=== PATIENT | female | born 2000 | race Hispanic/Latino ===

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

== ENCOUNTER 2024-09-07 16:11 | Emergency (ER) | payer SELFPAY ==
[~2024-09-07] VITALS: Ht 160 cm; Wt 59.0 kg
--- NOTE | 2024-09-07 16:30 | ERN ---
ED Note History of Present Illness Stated Complaint: ABNORMAL LABS Chief Complaint: Abnormal Labs Time Seen by MD: 16:14 Dictation: PATIENT IS A 24-YEAR-OLD FEMALE COMING IN FROM A LOCAL CLINIC WITH COMPLAINTS OF BEING ANEMIC AND TOLD BY HER DOCTOR TODAY TO COME INTO THE HOSPITAL FOR A BLOOD TRANSFUSION. SHE STATES SHE DOES NOT HAVE ANY HISTORY OF HEMATOCHEZIA/MELENA STOOLS/HEMATURIA OR HEAVY VAGINAL BLEEDING DISCHARGE. STATES SHE JUST STARTED SEEING HIS DOCTOR, WAS TOLD BY HER DOCTOR PRIOR TO COMING IN THAT HER IRON IS LOW. STATES SHE HAS NEVER HAD A BLOOD TRANSFUSION IN THE PAST. PATIENT NOTED TO BE VERY PALE ON INITIAL EXAM Allergies: Coded Allergies: Penicillins (Unverified Allergy, Unknown, RASH, 01/10/20) Home Meds Reported Medications Vits W-Ca,Fe,FA(<1Mg) ( Vitamins) 1 Each Tablet, 1 EACH PO DAILY, TAB 01/10/20 Past Medical History Past Medical History: No Pertinent History Surgical History: None History: Not Applicable LMP: Aug 04, 2024 RN Note Reviewed/Agreed w/PFSH: Yes Review of System Dictation CONSTITUTIONAL: NEGATIVE EXCEPT FOR HPI HEAD/FACE: NEGATIVE EXCEPT FOR HPI EENT: NEGATIVE EXCEPT FOR HPI RESPIRATORY: NEGATIVE EXCEPT FOR HPI GASTROINTESTINAL/ABDOMINAL: NEGATIVE EXCEPT FOR HPI GENITOURINARY: NEGATIVE EXCEPT FOR HPI MUSCULOSKELETAL: NEGATIVE EXCEPT FOR HPI INTEGUMENTARY: NEGATIVE EXCEPT FOR HPI NEUROLOGICAL/PSYCH: NEGATIVE EXCEPT FOR HPI HEMATOLOGIC/LYMPHATIC: NEGATIVE EXCEPT FOR HPI ALL SYSTEMS NEGATIVE, EXCEPT NOTED ABOVE. 13 POINT REVIEW OF SYSTEMS ASSESSED AND ALL NEGATIVE EXCEPT FOR ABOVE. Initial Vital Sign VS Vital Signs Date Time Temp Pulse Resp B/P (MAP) Pulse Ox O2 Delivery O2 Flow Rate FiO2 09/07/24 16:12 97.5 81 20 97/66 99 Room Air Physical Exam Dictation VITAL SIGNS REVIEWED GENERAL APPEARANCE: ALERT, ORIENTED X 3, NO ACUTE DISTRESS, WELL DEVELOPED, NOURISHED. HEAD AND FACE: NON-TRAUMATIC. EYES: PERRL, PALE CONJUNCTIVAS, EYELID NO TRAUMA, ANTERIOR CHAMBER WITH ARCUS SENILIS. EARS: PINNAS INTACT AND NO SIGNS OF TRAUMA OR ERYTHEMA EAR CANALS CLEAR AND NO DISCHARGE TM NO ERYTHEMA NOSE: NO DISCHARGE, NO BLEEDING. OROPHARYNX: BUCCAL MEMBRANES PALE PHARYNX CLEAR,NO ERYTHEMA, TONSILS NO EXUDATES, NO ABSCESSES NOTED, MUCOUS MEMBRANE MOIST NECK: SUPPLE, NON-TENDER, NO THYROMEGALY, NO MASSES, NO JVD, NO BRUITS BREAST:DEFERRED CHEST:NO TENDERNESS, NO CREPITUS, NO PARADOXICAL MOVEMENT, NO RETRACTIONS LUNGS:CLEAR, WELL-VENTILATED, SYMMETRIC, NO RALES, NO WHEEZING, NO RHONCHI, NO STRIDOR, GOOD BREATH SOUNDS BILATERALLY HEART: REGULAR RATE, REGULAR RHYTHM, NO MURMUR, NO GALLOPS VASCULAR: NO PERIPHERAL EDEMA, ABDOMEN: SOFT, POSITIVE BOWEL SOUNDS, NONDISTENDED, NO GUARDING, NONTENDER, NO REBOUND, NO MASSES NO HEPATOMEGALY, NO SPLENOMEGALY, NO DEMARCO'S SIGN, NO HERNIAS. RECTAL: DEFERRED GENITAL: DEFERRED NEUROLOGICAL: NORMAL SPEECH, MOTOR FUNCTION INTACT, SENSORY FUNCTION INTACT MUSCULOSKELETAL: NECK NONTENDER, FULL RANGE OF MOTION, BACK NONTENDER, FULL RANGE OF MOTION, EXTREMITIES: NONTENDER, FULL RANGE OF MOTION SKIN: COLOR PINK, DRY, NO TURGOR, NO RASH, NO LACERATIONS, NO ABRASIONS, NO CONTUSIONS. LYMPHATIC: DEFERRED Results (Laboratory/Radiology) Laboratory/Radiology Laboratory Tests Test 09/07/24 16:40 White Blood Count 5.9 K/uL (4.8-10.8) Red Blood Count 3.09 MIL/uL (4.00-5.50) L Hemoglobin 7.4 g/dL (12.0-16.0) L Hematocrit 25.2 % (36-48) L Mean Corpuscular Volume 81.6 fL (79-99) Mean Corpuscular Hemoglobin 23.9 pg (27.0-33.0) L Mean Corpuscular Hemoglobin Concent 29.4 g/dL (32.0-36.0) L Red Cell Distribution Width 18.6 % (11.0-15.5) H Platelet Count 190 K/uL (130-400) Mean Platelet Volume 11.0 fL (7.5-10.5) H Immature Granulocyte % (Auto) 0.5 % (0-1) Neutrophils (%) (Auto) 49.6 % (40.0-77.0) Lymphocytes (%) (Auto) 35.8 % (21.0-51.0) Monocytes (%) (Auto) 4.6 % (3.0-13.0) Eosinophils (%) (Auto) 8.5 % (0.0-8.0) H Basophils (%) (Auto) 1.0 % (0.0-5.0) Neutrophils # (Auto) 2.9 K/uL (1.8-7.7) Lymphocytes # (Auto) 2.1 K/uL (1.0-4.8) Monocytes # (Auto) 0.3 K/uL (0.1-1.0) Eosinophils # (Auto) 0.50 K/uL (0.00-0.70) Basophils # (Auto) 0.06 K/uL (0.00-0.20) Absolute Immature Granulocyte (auto 0.03 K/uL (0-1) Nucleated Red Blood Cells 0.0 % (0.0-0.19) Prothrombin Time 10.9 SEC (9.6-11.6) Prothromb Time International Ratio 1.03 (0.85-1.15) Activated Partial Thromboplast Time 27.8 SEC (26.3-35.5) Sodium Level 137 mmol/L (136-145) Potassium Level 3.9 mmol/L (3.5-5.1) Chloride Level 100 mmol/L (101-111) L Carbon Dioxide Level 29 mmol/L (21-32) Blood Urea Nitrogen 10 mg/dL (7-18) Creatinine 0.8 mg/dL (0.5-1.0) Glomerular Filtration Rate Calc 107 mL/min (>90) Random Glucose 78 mg/dL (70-105) Total Calcium 9.0 mg/dL (8.5-10.1) Labs Reviewed?: Yes ED Course ED Course Orders Procedure Category Date Status Time Cbc With Differential LAB 09/07/24 In Process 16:27 ,Urine Test LAB 09/07/24 Logged 16:27 Urinalysis Profile LAB 09/07/24 Logged 16:27 Occult Blood Stool LAB 09/07/24 Logged Single Only 16:27 Basic Metabolic Panel LAB 09/07/24 Complete 16:27 Type And Screen BBK 09/07/24 In Process 16:27 Pt And Ptt LAB 09/07/24 Complete 16:27 Vital Signs Date Time Temp Pulse Resp B/P (MAP) Pulse Ox O2 Delivery O2 Flow Rate FiO2 09/07/24 16:12 97.5 81 20 97/66 99 Room Air 1730/HEMOGLOBIN 7.4 PATIENT WE WILL BE DISCHARGED TO FOLLOW UP WITH HER DOCTOR AND RECOMMENDATIONS TO SEE ONCOLOGY MICROBIOLOGY PROFESSOR. SHE STATES SHE HAS A LONG HISTORY OF IRON DEFICIENCY ANEMIA, WE WILL PRESCRIBED IRON. Medical Decision Making MDM MEDICAL DECISION-MAKING BASED ON BASIC LABS HEMOGLOBIN 7.4 PATIENT IS A NINE BE CRITERIA FOR EMERGENT ADMISSION WE WILL GIVE PATIENT IRON SUPPLEMENTATION FOR OUTPATIENT HOME AND FOLLOW UP WITH HER DOCTOR FOR HEMATOLOGY-ONCOLOGY REFERRAL DX & DISP Disposition: Discharge Departure Impression: Primary Impression: Iron deficiency anemia Condition: Stable Scripts Ferrous Sulfate (Iron) 325 Mg (65 Mg Iron) Tablet 1 TAB PO BID for 30 Days, #60 TAB 0 Refills Prov: NIMESH DAVISON G[employer]OLINE FINISHER 09/07/24 Additional Instructions: FOLLOW-UP WITH PRIMARY CARE PROVIDER IN 1 TO 2 DAYS. TAKE MEDICATIONS DIRECTED HERE IN THE EMERGENCY ROOM. OKAY TO CONTINUE HOME MEDICATIONS UNLESS OTHERWISE DISCUSSED DURING YOUR VISIT IN THE EMERGENCY ROOM TODAY. RETURN TO YOUR NEAREST EMERGENCY ROOM IF SYMPTOMS WORSEN OR IF THERE IS NO IMPROVEMENT. CALL 911 IF YOU NEED IMMEDIATE ASSISTANCE. TAKE TYLENOL OR MOTRIN AGAG-GOA-[id number] NEEDED AND IF NO CONTRAINDICATIONS ARE PRESENT. INCREASE ORAL HYDRATION. A WOUND CULTURE OR URINE CULTURE WAS ORDERED HERE IN THE EMERGENCY ROOM DEPARTMENT PLEASE FOLLOW-UP WITH PRIMARY CARE PROVIDER AND ADVISE THEM TO GET REPEAT PORTS FROM OUR FACILITY. IF YOU HAD ANY TIEN WRAP/SPLINTS THAT WERE APPLIED HERE, PLEASE DO NOT REMOVE THEM UNTIL YOU SEE YOUR PRIMARY CARE OR SPECIALTY. TAKE IRON REPLACEMENTS DIRECTED. FOLLOW UP WITH YOUR PRIMARY CARE DOCTOR AND RECOMMEND ONCOLOGY HEMATOLOGY REFERRAL Referrals: SARAH BARTON MD (PCP) Time of Disposition: 17:34 and I agree with, Diagnosis and Plan NIMESH DAVISON NP Sep 07, 2024 16:30
[2024-09-07 16:49] LABS: BASOPHILS # (AUTO) 0.06 K/uL (0.00-0.20); EOSINOPHILS % (AUTO) 8.5 % (0.0-8.0); HEMATOCRIT 25.2 % (36-48); IMMATURE GRANULOCYTE ABSOLUTE 0.03 K/uL (0-1); LYMPHOCYTES # (AUTO) 2.1 K/uL (1.0-4.8); LYMPHOCYTES % (AUTO) 35.8 % (21.0-51.0); MEAN CORPUSCULAR HEMOGLOBIN 23.9 pg (27.0-33.0); MEAN CORPUSCULAR HGB CONC 29.4 g/dL (32.0-36.0); MEAN CORPUSCULAR VOLUME 81.6 fL (79-99); MONOCYTES # (AUTO) 0.3 K/uL (0.1-1.0); MONOCYTES % (AUTO) 4.6 % (3.0-13.0); NEUTROPHILS # (AUTO) 2.9 K/uL (1.8-7.7); NEUTROPHILS % (AUTO) 49.6 % (40.0-77.0); PLATELET COUNT (AUTO) 190 K/uL (130-400); RED BLOOD CELL COUNT(AUTO) 3.09 MIL/uL (4.00-5.50); RED CELL DISTRIBUTION WIDTH 18.6 % (11.0-15.5); WHITE BLOOD COUNT (AUTO) 5.9 K/uL (4.8-10.8)
[2024-09-07 16:59] LABS: CREATININE 0.8 mg/dL (0.5-1.0); POTASSIUM 3.9 mmol/L (3.5-5.1)
[2024-09-07 17:16] LABS: INR 1.03 (0.85-1.15); PROTHROMBIN TIME 10.9 SEC (9.6-11.6)
[2024-09-07 17:18] LABS: PARTIAL THROMBOPLASTIN TIME 27.8 SEC (26.3-35.5)
--- NOTE | 2024-09-07 17:30 | NUR ---
NIMESH BELL UPDATED PT ABOUT HER RESULTS.
[2024-09-07] MEDS ORDERED: FERR-82 PO (17:35)
[2024-09-07 18:09] VITALS: BP 93/59; PULSE 62; RESP 16; TEMP 97.7; O2SAT 99
== END 2024-09-07 18:08 | disposition home or self-care (01) ==
LOC: EDH 16:11
DX: D50.9 Iron deficiency anemia, unspecified (principal); Z88.0 Allergy status to penicillin
CPT/HCPCS: 36415; 80048; 85025; 85610; 85730; 86850; 86900; 86901; 99283